=== PATIENT | male | born 1985 | race Two or more races ===

== ENCOUNTER 2024-01-01 08:17 | Emergency (ER) | payer OTHER ==
[~2024-01-01] VITALS: Ht 180.3 cm; Wt 72.6 kg
[2024-01-01] MEDS ORDERED: TYSABRI300 MG/15 IV (08:35)
[2024-01-01 10:11] LABS: HEMOGLOBIN 15.9 g/dL (13-16.00); MEAN CELL VOLUME 87.2 fL (80.0-100.00); MEAN CORPUSCULAR HEMOGLOBIN 30.8 pg (27.00-32.0); MEAN CORPUSCULAR HGB CONC 35.3 g/dl (32.0-36.0); PLATELET COUNT 247 K/uL (150-450); RED BLOOD COUNT 5.17 M/uL (4.00-6.00); RED CELL DISTRIBUTION WIDTH 13.6 % (11.5-14.5)
[2024-01-01 10:56] LABS: ALBUMIN 4.4 gm/dL (3.4-5.0); BILIRUBIN TOTAL 0.59 mg/dL (0.3-1.2); CALCIUM 9.4 mg/dL (8.5-10.1); CREATININE SERUM 0.84 mg/dL (0.70-1.30); GFR 102.26; GLOBULINA 3.3 G/DL (2.4-3.5); POTASSIUM 4.95 mEq/L (3.5-5.1); TOTAL PROTEIN 7.7 gm/dL (6.4-8.2)
[2024-01-01 10:58] LABS: URINE APPEARANCE Clear; URINE BILIRRUBIN Negative (NEGATIVE); URINE BLOOD Negative; URINE COLOR Yellow; URINE GLUCOSE Negative (NEGATIVE); URINE LEUKOCYTE Negative; URINE NITRATE Negative; URINE PROTEIN Negative (NEGATIVE); URINE UROBILINOGEN 0.2 E.U./dl
[2024-01-01 11:10] LABS: URINE BACTERIA 2.5 uL (0.0-1933); URINE WBC 0.9 uL (0.0-23.2)
== END 2024-01-01 12:06 | disposition home or self-care (01) ==
LOC: ER 08:18
PROVIDERS: Emergency Medicine
DX: R00.2 Palpitations (principal)